=== PATIENT | male | born 1985 | race Caucasian/White ===

== ENCOUNTER 2023-06-25 10:52 | Outpatient (CLI) | payer OTHER | END 2023-06-25 10:53 | disposition home or self-care (01) | LOC: BICRAD 10:52 | PROVIDERS: ATTEND Nurse Practitioner Family | DX: R06.02 Shortness of breath (principal) | CPT/HCPCS: 71046 ==

== ENCOUNTER 2025-03-13 09:19 | Outpatient (CLI) | payer OTHER | END 2025-03-13 09:20 | disposition home or self-care (01) | LOC: SCSMRI 09:19 | PROVIDERS: ATTEND Psychiatry & Neurology Sleep Medicine | DX: G93.0 Cerebral cysts (principal) | CPT/HCPCS: 70552 ==